=== PATIENT | female | born 1980 | race Caucasian/White ===

== ENCOUNTER 2019-11-30 09:12 | Emergency (ER) | payer MEDICAID ==
--- NOTE | 2019-11-30 10:46 | ER Document Report ---
ED Flu Like - General Chief Complaint: Flu Symptoms Stated Complaint: COUGH,VOMITING Time Seen by Provider: 11/30/19 10:01 Primary Care Provider: JOSÉ LUIS AADM [Primary Care Provider] - Follow up as needed - HPI Patient complains to provider of: Cough, vomiting Onset: Last week Timing/Duration: Constant Quality of pain: Achy Associated symptoms: Chest pain, Productive cough, Fever, Headache, Hurts to breath, Nausea, Vomiting, Shortness of breath, Sore throat, Sweating Notes: Patient is a 39-year-old female who presents with flu-like symptoms. She states she has been feeling this way for about 1 week but the symptoms have worsened over the past 2 days. She describes headaches, diaphoresis, body aches, diarrhea, nausea, vomiting. Also mentions pleuritic pain with coughing and shortness of breath. Patient states she has spent a lot of time with her neighbor who was recently diagnosed with COVID-19 about 4 days ago. She also mentions some pain down her right leg with palpation. No dysuria or urinary symptoms - Related Data Allergies/Adverse Reactions: ondansetron [From Zofran] Allergy (Verified 11/30/19 10:26) Past Medical History - Social History Smoking Status: Current Every Day Smoker Frequency of alcohol use: None Drug Abuse: None Family History: Reviewed & Not Pertinent Patient has homicidal ideation: No Renal/ Medical History: Reports: Hx Ectopic Past Surgical History: Reports: Hx Cholecystectomy, Hx Gynecologic Surgery - ectopic Review of Systems - Review of Systems Constitutional: Chills, Diaphoresis, Fever EENT: Nose congestion, Throat pain Cardiovascular: Chest pain, Dyspnea, Lightheaded Respiratory: Cough, Hurts to breathe, Short of breath Gastrointestinal: Abdominal pain, Nausea, Vomiting. denies: Blood streaked bowels, Blood in vomit Genitourinary: denies: Burning, Dysuria Female Genitourinary: No symptoms reported Musculoskeletal: Muscle pain Skin: No symptoms reported. denies: Lesions, Rash Neurological/Psychological: No symptoms reported -: Yes All other systems reviewed and negative Physical Exam - Vital signs Vitals: Temp Pulse Resp BP Pulse Ox 98.2 F 84 16 181/94 H 99 11/30/19 09:38 11/30/19 09:38 11/30/19 09:38 11/30/19 09:38 11/30/19 09:38 - General In distress: None - HEENT Eyes: Normal Conjunctiva: Normal Ears: Normal - Respiratory Respiratory status: No respiratory distress. No: Cyanosis, Retractions, Tachypnea Breath sounds: Normal. No: Rhonchi, Wheezing Chest palpation: Normal - Abdominal Inspection: Normal Distension: No distension Tenderness: Nontender - Back Notes: Discomfort to palpation of right piriformis. No rash. ROM of lower extremities intact. - Extremities General upper extremity: Normal inspection, Normal ROM General lower extremity: Normal inspection, Normal ROM - Neurological Cognition: Normal Orientation: AAOx4 Speech: Normal - Psychological Associated symptoms: Normal affect, Normal mood - Skin Skin Temperature: Warm Skin Moisture: Dry Course - Re-evaluation Re-evalutation: 11/30/19 15:07 Patient has been on room air during her ER stay. She ambulated without difficulty and pulse ox remained 99%. She has not been vomiting. Sates that she aches all over but the Toradol helped take the edge off the pain. Lab work does not show dehydration. I did discuss with her that she has mildly elevated LFTs. She has had a cholecystectomy. I told her to follow-up with her PCP for this. D-dimer is negative so I have low suspicion for PE. Xray also was negative for infiltrates. Likely her chest soreness is from coughing. Her urinalysis had squamous cells, she is denying any urinary symptoms, I will send it for culture and she was instructed that she will be called with any positive results. It is possible that this could be viral or COVID-19. She was tested and told to self isolate. she verbalized understanding of all instructions. She stated she would like something for nausea but is unable to have Zofran due to a prolonged QTC. Patient states that she has had Phenergan prescribed before without difficulty. I did discuss risks of this medicine with prolonged QTC but she verbalized understanding and states she has had it before. Instructed to stay hydrated. She was provided with strict return precautions including shortness of breath, worsening symptoms. Patient was very agreeable to the p colette. 11/30/19 15:11 11/30/19 18:05 - Vital Signs Vital signs: Temp Pulse Resp BP Pulse Ox 98.5 F 79 18 136/78 H 98 11/30/19 15:22 11/30/19 15:22 11/30/19 15:22 11/30/19 15:22 11/30/19 15:22 - Laboratory Result Diagrams: 11/30/19 11:20 11/30/19 11:20 Laboratory results interpreted by me: 11/30/19 11/30/19 09:40 11:20 AST 74 H ALT 92 H Leukocyte Esterase Rfl TRACE H - EKG Interpretation by Me EKG shows normal: Sinus rhythm Rate: Normal Rhythm: NSR When compared to previous EKG there are: Previous EKG unavailable Additional EKG results interpreted by me: 11/30/19 13:53 Sinus rhythm at a rate of 62. QTc 488. Prolonged prolonged QT interval. No acute ST changes. No previous EKG available for comparison. Discharge - Discharge Clinical Impression: Cough Nausea & vomiting Qualifiers: Vomiting type: unspecified Vomiting Intractability: non-intractable Qualified Code(s): R11.2 - Nausea with vomiting, unspecified Condition: Stable Disposition: HOME, SELF-CARE Additional Instructions: You have been tested for COVID-19. You must self quarantine until you receive a negative result. You will typically be called within 2 to 5 days with the re mary jane. You will be provided with a work note. Please return for any worsening symptoms or shortness of breath. Prescriptions: Promethazine HCl [Phenergan 25 mg Tablet] 12.5 mg PO Q6H PRN #5 tablet PRN Reason: For Nausea/Vomiting Forms: Parent Work Note, Return to Work Referrals: LOCALMD,NO [Primary Care Provider] - Follow up as needed
[2019-11-30] MEDS ORDERED: NORMAL SALINE 1000 ML 1,000 ML IV ONE (11:09)
--- NOTE | 2019-11-30 11:11 | RADIOLOGY REPORT (SQ) ---
EXAM DESCRIPTION: CHEST SINGLE VIEW IMAGES COMPLETED DATE/TIME: 11/30/2019 10:54 am REASON FOR STUDY: cough COMPARISON: None. EXAM PARAMETERS: NUMBER OF VIEWS: One view. TECHNIQUE: Single frontal radiographic view of the chest acquired. RADIATION DOSE: NA LIMITATIONS: None. FINDINGS: LUNGS AND PLEURA: No opacities, masses or pneumothorax. No pleural effusion. MEDIASTINUM AND HILAR STRUCTURES: No masses. Contour normal. HEART AND VASCULAR STRUCTURES: Heart normal in size. Normal vasculature. BONES: No acute findings. HARDWARE: None in the chest. OTHER: No other significant finding. IMPRESSION: NO ACUTE RADIOGRAPHIC FINDING IN THE CHEST. TECHNICAL DOCUMENTATION: JOB ID: [id number] 2010 [employer]- All Rights Reserved Reading location - IP/workstation name: [email or web address]
[2019-11-30 11:46] LABS: APPEARANCE,URINE CLOUDY; BILIRUBIN,URINE NEGATIVE (NEGATIVE); COLOR,URINE YELLOW; GLUCOSE, URINE NEGATIVE (NEGATIVE); KETONES,URINE NEGATIVE (NEGATIVE); PROTEIN,URINE NEGATIVE (NEGATIVE); URINE SPECIFIC GRAVITY 1.006; UROBILINOGEN,URINE NEGATIVE mg/dL (<2.0)
[2019-11-30 11:48] LABS: ABSOLUTE BASOPHILS # (AUTO) 0.1 10^3/uL (0.0-0.2); ABSOLUTE EOSINOPHILS # (AUTO) 0.2 10^3/uL (0.0-0.6); ABSOLUTE LYMPHOCYTES (AUTO) 2.3 10^3/uL (0.5-4.7); ABSOLUTE MONOCYTES (AUTO) 0.7 10^3/uL (0.1-1.4); BASOPHILS % (AUTO) 0.6 % (0-2); HEMATOCRIT 41.6 % (36.0-47.0); LYMPHOCYTES % (AUTO) 24.9 % (13-45); MEAN CORPUSCULAR HEMOGLOBIN 31.8 pg (27.0-33.4); MEAN CORPUSCULAR HGB CONC 33.6 g/dL (32.0-36.0); MEAN CORPUSCULAR VOLUME 95 fl (80-97); MONOCYTES % (AUTO) 7.1 % (3-13); PLATELET COUNT 242 10^3/uL (150-450); RED CELL DISTRIBUTION WIDTH 13.4 % (11.5-14.0); SEGMENTED NEUTROPHILS % (AUTO) 65.4 % (42-78); TOTAL CELLS COUNTED % (AUTO) 100 %; WHITE BLOOD COUNT 9.2 10^3/uL (4.0-10.5)
[2019-11-30] MEDS ORDERED: PROMETHAZINE HCL INJ 25 MG/1 ML VIAL IV ONE (11:52)
[2019-11-30 12:17] LABS: ALBUMIN 4.2 g/dL (3.5-5.0); ALKALINE PHOSPHATASE 106 U/L (38-126); ANION GAP 9 (5-19); ASPARTATE AMINO TRANSFERASE 74 U/L (14-36); BILIRUBIN,DIRECT 0.3 mg/dL (0.0-0.4); BILIRUBIN,TOTAL 0.7 mg/dL (0.2-1.3); BLOOD UREA NITROGEN 8 mg/dL (7-20); CALCIUM 9.9 mg/dL (8.4-10.2); CARBON DIOXIDE 29 mmol/L (22-30); CHLORIDE 102 mmol/L (98-107); GLUCOSE 94 mg/dL (75-110); POTASSIUM 4.4 mmol/L (3.6-5.0); TOTAL PROTEIN 7.5 g/dL (6.3-8.2)
[2019-11-30] MEDS ORDERED: KETOROLAC TROMETHAMINE INJ/PF 30 MG/1 ML SDV IV ONE ×2 (12:24→13:51)
--- NOTE | 2019-11-30 13:51 | EKG REPORT ---
SEVERITY:- BORDERLINE ECG - SINUS RHYTHM BORDERLINE T WAVE ABNORMALITIES BORDERLINE PROLONGED QT INTERVAL : Confirmed by: Govind Reynolds MD 30-Nov-2019 13:50:34
[2019-11-30 15:23] VITALS: BP 136/78
== END 2019-11-30 15:27 | disposition home or self-care (01) ==
LOC: ER 09:12
DX: R05 Cough (principal); R07.1 Chest pain on breathing; R50.9 Fever, unspecified; R51 Headache; R11.2 Nausea with vomiting, unspecified; R06.02 Shortness of breath; J02.9 Acute pharyngitis, unspecified; R19.7 Diarrhea, unspecified; M79.604 Pain in right leg; R42 Dizziness and giddiness; M79.10 Myalgia, unspecified site; F17.200 Nicotine dependence, unspecified, uncomplicated; R10.9 Unspecified abdominal pain; R79.89 Other specified abnormal findings of blood chemistry; Z90.49 Acquired absence of other specified parts of digestive tract; Z88.8 Allergy status to other drugs, medicaments and biological substances; Z20.828 Contact with and (suspected) exposure to other viral communicable diseases
CPT/HCPCS: 93005; 96376; 99285; 96361; 96374; 96375; 36415; 87086; 83690; 85025; 87635; 81025; 80053; 81001; 84484; 85379; 71045; 93010; J1885; J2550; J7030; C9803